=== PATIENT | female | born 1990 | race Hispanic/Latino ===

== ENCOUNTER 2022-09-30 22:44 | Inpatient (IN) | payer OTHER ==
[~2022-09-30] VITALS: Ht 162.6 cm; Wt 138.8 kg
[2022-09-30] MEDS ORDERED: LACTATED RINGERS 1000ML 1,000 ML IV SCH (23:00)
[2022-09-30 23:34] LABS: APPEARANCE,URINE CLEAR (CLEAR); BILIRUBIN,URINE NEGATIVE (NEGATIVE); COLOR,URINE YELLOW (YELLOW); GLUCOSE, URINE (UA) NEGATIVE (NEGATIVE); KETONES,URINE NEGATIVE (NEGATIVE); LEUKOCYTE ESTERASE ,URINE NEGATIVE Leu/uL (NEGATIVE); NITRATE,URINE NEGATIVE (NEGATIVE); OCCULT BLOOD,URINE NEGATIVE (NEGATIVE); PROTEIN,URINE 50 mg/dL (NEGATIVE); UROBILINOGEN,URINE 0.2 mg/dL (0.2-1.0)
[2022-09-30 23:42] LABS: AMPHET/METH SCREEN,URINE NEGATIVE (NEGATIVE); BARBITURATE SCREEN, URINE NEGATIVE (NEGATIVE); BENZODIAZEPINES SCREEN,URINE NEGATIVE (NEGATIVE); CANNABINOID SCREEN,URINE NEGATIVE (NEGATIVE); COCAINE SCREEN,URINE NEGATIVE (NEGATIVE); OPIATE SCREEN,URINE NEGATIVE (NEGATIVE); PHENCYCLIDINE SCREEN,URINE NEGATIVE (NEGATIVE)
[2022-09-30 23:45] LABS: ADD UA MICROSCOPIC NO
[2022-10-01] MEDS ORDERED: LACTATED RINGERS 1000ML 1,000 ML IV PRN ×2 (01:00→13:00)
[2022-10-01 01:29] LABS: HEMATOCRIT 31.9 % (36-48); MEAN CORPUSCULAR HEMOGLOBIN 24.8 pg (27.0-33.0); MEAN CORPUSCULAR HGB CONC 32.3 g/dL (32.0-36.0); MEAN CORPUSCULAR VOLUME 76.7 fL (79-99); PLATELET COUNT (AUTO) 222 K/uL (130-400); RED BLOOD CELL COUNT(AUTO) 4.16 MIL/uL (4.00-5.50); RED CELL DISTRIBUTION WIDTH 17.2 % (11.0-15.5); WHITE BLOOD COUNT (AUTO) 10.3 K/uL (4.8-10.8)
[2022-10-01 01:43] LABS: CREATININE 0.7 mg/dL (0.5-1.5); INR 0.93 (0.85-1.15); POTASSIUM 3.8 mmol/L (3.5-5.1); PROTHROMBIN TIME 9.4 SEC (9.6-11.6)
[2022-10-01 01:45] LABS: PARTIAL THROMBOPLASTIN TIME 24.8 SEC (26.3-35.5)
[2022-10-01 01:47] LABS: ALBUMIN 2.4 g/dL (3.5-5.0); BILIRUBIN,TOTAL 0.2 mg/dL (0.2-1.0); TOTAL PROTEIN, SERUM 6.8 g/dL (6.0-8.3)
[2022-10-01 05:49] VITALS: BP 117/63
[2022-10-01] MEDS ORDERED: FOLI20CA PO (06:06)
[2022-10-01 11:55] LABS: RAPID PLASMA REAGIN NONREACTIVE (NONREACTIVE)
[2022-10-01] MEDS ORDERED: AMPICILLIN 2GM+NS 100ML 100 ML IV SCH (18:00)
[2022-10-01] MEDS ORDERED: DINOPROSTONE 10 MG VAGINAL SUPP VG ONE (19:00)
[2022-10-01] MEDS: AMPICILLIN 1GM+NS 50ML 50 ML IV SCH (22:25)
[2022-10-02] MEDS: AMPICILLIN 1GM+NS 50ML 50 ML IV SCH ×2 (02:54→06:16)
[2022-10-02] MEDS ORDERED: CALDOLOR 800MG+NS 250ML 250 ML IV PRN (07:30)
[2022-10-02] MEDS ORDERED: CEFAZOLIN SODIUM 1 GM VIAL IVPB PRN (07:30)
[2022-10-02] MEDS ORDERED: FENTANYL CITRATE PF 50 MCG/1 ML 2ML VIAL ONE (12:00)
[2022-10-02] MEDS ORDERED: MORPHINE PF 100MG/10ML AMP IV ONE (12:00)
[2022-10-02] MEDS ORDERED: METOCLOPRAMIDE 10 MG/2 ML VIAL ONE (12:09)
[2022-10-02] MEDS ORDERED: CEFAZOLIN SODIUM 3 GM VIAL IVPB ONE (12:15)
[2022-10-02] MEDS ORDERED: OXYTOCIN 10 USP UNITS/ML ONE (12:43)
[2022-10-02] MEDS ORDERED: PHENYLEPHRINE HCL 10 MG/ML 1ML VIAL IV ONE (12:58)
[2022-10-02] MEDS ORDERED: ONDANSETRON 4MG INJ ONE (12:59)
[2022-10-02] MEDS ORDERED: OXYTOCIN-LR 30 UNITS/500ML 500 ML IV PRN (13:30)
[2022-10-02] MEDS ORDERED: PROMETHAZINE HCL 25 MG/ML 1ML AMPULE IM PRN (13:30)
[2022-10-02] MEDS ORDERED: MEPERIDINE-PF 75 MG/ML SYG IM PRN (13:30)
[2022-10-02] MEDS ORDERED: 0.9%NACL 10ML VIAL IVP PRN (13:30)
[2022-10-02 15:15] VITALS: BP 131/69; PULSE 81; RESP 16
[2022-10-02 20:15] VITALS: BP 126/70; PULSE 102; RESP 20
[2022-10-02] MEDS: CALDOLOR 800MG+NS 250ML 250 ML IV SCH (20:58)
[2022-10-02] MEDS: DEXTROSE 5 %-0.45 % NACL 1,000 ML IV PRN (20:59)
[2022-10-02 23:02] VITALS: BP 114/76; PULSE 88; RESP 20
[2022-10-03] MEDS ORDERED: BISACODYL 10 MG SUPP.RECT RC PRN (03:30)
[2022-10-03] MEDS ORDERED: ACETAMINOPHEN WITH CODEINE 1 TAB TAB PO PRN (03:30)
[2022-10-03] MEDS ORDERED: LANOLIN 30GM OINTMENT TP PRN (03:30)
[2022-10-03] MEDS ORDERED: HYDROCODONE/ACETAMINOPHEN 5/325 MG TAB PO PRN (03:30)
[2022-10-03] MEDS ORDERED: ACETAMINOPHEN 500 MG TABLET PO PRN (03:30)
[2022-10-03 03:53] VITALS: BP 147/87; PULSE 99; RESP 18
[2022-10-03] MEDS ORDERED: MEASLES/MUMPS/RUBELLA VACCINE, LIVE 0.5 ML/VIAL SQ ONE (04:00)
[2022-10-03] MEDS: CALDOLOR 800MG+NS 250ML 250 ML IV SCH (04:55)
[2022-10-03] MEDS: DEXTROSE 5 %-0.45 % NACL 1,000 ML IV PRN (06:25)
[2022-10-03 06:28] LABS: HEMATOCRIT 27.9 % (36-48); MEAN CORPUSCULAR HEMOGLOBIN 24.6 pg (27.0-33.0); MEAN CORPUSCULAR HGB CONC 31.5 g/dL (32.0-36.0); MEAN CORPUSCULAR VOLUME 77.9 fL (79-99); RED BLOOD CELL COUNT(AUTO) 3.58 MIL/uL (4.00-5.50); RED CELL DISTRIBUTION WIDTH 17.2 % (11.0-15.5)
[2022-10-03 07:23] VITALS: BP 146/85; PULSE 82; RESP 16
[2022-10-03] MEDS: DOCUSATE SODIUM 100 MG CAP PO SCH ×2 (08:19→20:22)
[2022-10-03] MEDS: SIMETHICONE 80 MG TAB.CHEW PO PRN ×3 (08:19→20:22)
[2022-10-03 13:02] VITALS: BP 150/85; PULSE 112; RESP 16
[2022-10-03] MEDS: IBUPROFEN 600 MG TABLET PO PRN ×2 (16:16→22:39)
[2022-10-03 16:34] VITALS: BP 151/87; PULSE 102; RESP 16
[2022-10-03 23:52] VITALS: BP 136/85; PULSE 90; RESP 20
[2022-10-04] MEDS: AMPICILLIN 1GM+NS 50ML 50 ML IV SCH (02:47)
[2022-10-04 03:45] VITALS: BP 121/67; PULSE 84; RESP 20
[2022-10-04 07:30] VITALS: BP 158/78; PULSE 97; RESP 16
[2022-10-04] MEDS: SIMETHICONE 80 MG TAB.CHEW PO PRN (08:30)
[2022-10-04] MEDS: DOCUSATE SODIUM 100 MG CAP PO SCH (08:30)
[2022-10-04] MEDS: IBUPROFEN 600 MG TABLET PO PRN (08:31)
[2022-10-04 12:17] VITALS: BP 140/83; PULSE 98; RESP 16
[2022-10-04] MEDS ORDERED: ACET-2079 PO (13:04)
== END 2022-10-04 14:55 | disposition home or self-care (01) | DRG 788 ==
LOC: EDH 22:44 → LDH 22:45 → OBSVTOIN 22:45 → EDH 22:51 → WSH 10-02 15:10
PROVIDERS: ADMIT Obstetrics & Gynecology; ATTEND Obstetrics & Gynecology
PROC: 10D00Z1 Extraction of Products of Conception, Low, Open Approach (ICD-10-PCS; principal; 2022-10-02 12:00)
DX: O61.8 Other failed induction of labor (principal); O69.81X0 Labor and delivery complicated by cord around neck, without compression, not applicable or unspecified; O48.0 Post-term pregnancy; Z3A.40 40 weeks gestation of pregnancy; Z37.0 Single live birth
CPT/HCPCS: 36415; 59510; 76805; 80053; 80305; 81003; 84550; 85027; 85384; 85610; 85730; 86592; 86701; 86850; 86900; 86901; 87340; 87390; 90707; 96360; 96361; A4344; G0378; J0290; J0690; J1741; J2274; J2371; J2405; J2590; J2765; J3010; J7120; A4248